=== PATIENT | female | born 1955 | race Caucasian/White ===

== ENCOUNTER 2016-11-18 20:28 | Emergency (ER) | payer OTHER ==
[~2016-11-18] VITALS: Ht 162.6 cm; Wt 80.7 kg
[2016-11-18 20:55] VITALS: BP 116/76
[2016-11-18] MEDS ORDERED: PHENAZOPYRIDINE HCL 200 MG TABLET PO ONE (21:30)
[2016-11-18] MEDS ORDERED: PHENAZOPYRIDINE HCL 200 MG TABLET ONE (21:37)
[2016-11-18 22:40] LABS: KETONES,URINE NEGATIVE (NEGATIVE); LEUKOCYTE ESTERASE ,URINE 1+ (NEGATIVE)
[2016-11-18 22:43] LABS: ADD UA MICROSCOPIC YES
[2016-11-18 22:48] LABS: ADD URINE CULTURE YES
[2016-11-18 22:49] LABS: WBC,URINE TOO NUMEROUS TO COUN /HPF (0-3)
[2016-11-18] MEDS ORDERED: NITROFURANTOIN/NITROFURAN MAC 100 MG CAPSULE PO ONE (23:00)
[2016-11-18] MEDS ORDERED: NITROFURANTOIN/NITROFURAN MAC 100 MG CAPSULE ONE (23:03)
== END 2016-11-18 23:17 | disposition home or self-care (01) ==
LOC: ER 20:31
DX: N39.0 Urinary tract infection, site not specified (principal); I10 Essential (primary) hypertension; E78.00 Pure hypercholesterolemia, unspecified; R73.03 Prediabetes
CPT/HCPCS: 81001; 87086; 99284; A4606; Z7610; 81000-TC; 87186-TC

== ENCOUNTER 2016-12-26 10:12 | Emergency (ER) | payer OTHER ==
[~2016-12-26] VITALS: Ht 149.9 cm; Wt 68.0 kg
[2016-12-26 10:46] LABS: KETONES,URINE Trace (NEGATIVE); LEUKOCYTE ESTERASE ,URINE Large (NEGATIVE)
[2016-12-26 10:56] LABS: ADD UA MICROSCOPIC YES
[2016-12-26 11:00] LABS: ADD URINE CULTURE YES; RBC,URINE 51-80 /HPF (0-2); WBC,URINE TOO NUMEROUS TO COUN /HPF (0-3)
[2016-12-26 11:18] VITALS: BP 127/88
== END 2016-12-26 11:45 | disposition home or self-care (01) ==
LOC: ER 10:14
DX: N39.0 Urinary tract infection, site not specified (principal); E78.00 Pure hypercholesterolemia, unspecified; F32.9 Major depressive disorder, single episode, unspecified; I10 Essential (primary) hypertension
CPT/HCPCS: 81000-TC; 87086-TC; 87186-TC; A4606; Z7610

== ENCOUNTER 2022-07-25 19:50 | Emergency (ER) | payer OTHER ==
[~2022-07-25] VITALS: Ht 157.5 cm; Wt 90.7 kg
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
[2022-07-25] MEDS ORDERED: ACETAMINOPHEN 325 MG TABLET ONE (21:28)
[2022-07-25] MEDS ORDERED: ACETAMINOPHEN 325 MG TABLET PO ONE (21:30)
--- NOTE | 2022-07-25 21:32 | NUR ---
PATIENT GOING TO CT.
[2022-07-25] MEDS ORDERED: TYL2T PO (22:42)
[2022-07-25] MEDS ORDERED: IBUP-1953 PO (22:42)
[2022-07-25] MEDS ORDERED: KETOROLAC TROMETHAMINE INJ 30 MG/ML VIAL ONE (22:57)
[2022-07-25] MEDS ORDERED: KETOROLAC TROMETHAMINE INJ 60 MG/2 ML VIAL IM ONE (23:00)
--- NOTE | 2022-07-25 23:32 | NUR ---
Patient discharged to home in stable condition. Written and verbal after care instructions given. Patient verbalizes understanding of instruction.
[2022-07-25 23:34] VITALS: BP 125/60
== END 2022-07-25 23:32 | disposition home or self-care (01) ==
LOC: ER 20:04
DX: S42.251A Displaced fracture of greater tuberosity of right humerus, initial encounter for closed fracture (principal); I11.0 Hypertensive heart disease with heart failure; I50.9 Heart failure, unspecified; E78.5 Hyperlipidemia, unspecified; F32.A Depression, unspecified; E78.00 Pure hypercholesterolemia, unspecified; Z79.1 Long term (current) use of non-steroidal anti-inflammatories (NSAID); V89.2XXA Person injured in unspecified motor-vehicle accident, traffic, initial encounter; Y93.89 Activity, other specified; Y92.481 Parking lot as the place of occurrence of the external cause; Y99.8 Other external cause status
CPT/HCPCS: 99284; 72125; 96372; 73030; 70450; J1885